=== PATIENT | male | born 1970 | race Caucasian/White ===

== ENCOUNTER 2022-05-27 07:50 | Outpatient (REF) | payer BC, SELFPAY | END 2022-05-27 07:51 | disposition home or self-care (01) | LOC: LBN 07:50 | PROVIDERS: Visit Provider Surgery | DX: L72.3 Sebaceous cyst (principal) | CPT/HCPCS: 87070; 87205 ==

== ENCOUNTER 2022-06-14 10:15 | Day surgery (SDC) | payer BC, SELFPAY ==
--- NOTE | 2022-06-14 08:41 | PDOC.DSDIS_ITS ---
Discharge Plan Disposition Patient Disposition: HOME Condition: Good Discharge Details Reason For Visit: Excision and linear closure of sebaceous cyst Attending Provider: Blaine Wisdom Primary Care Provider: Unknown,Unknown Home Meds and New Rx's Prescriptions: No Action No Known Home Meds Discharge Instructions Additional Instructions: 1. Use tylenol and ibuprofen over the counter as needed. 2. Leave bandage in place for 24 hours, then remove. 3. Shower with warm soapy water. Pat dry. Use a bandaid if needed to protect your clothing. 4. No soaking or tub baths until I see you in the office. 5. No heavy lifting until I see you in the office. 6. Call the office (or go directly to the emergency room after hours) if you notice any of the following: Develop chills (warm to touch), or if you have a thermometer and your temperature is above 101 Difficulty breathing or difficultly swallowing Persistent vomiting Any bleeding ? exceeding one tablespoon 7. Call your physician if the site where your intravenous was started becomes red, swollen, painful, and warm to touch. Referrals: Blaine Wisdom MD [ [facility]FF [facility]YSICIAN] - Activity:: Activity as Tolerated Remove Dressings/Wound Care:: 24 hours Shower/Bathe:: 24 hours Diet:: As Tolerated Discharge Orders Discharge Orders: Discharge Order (Routine); Ordered 06/14/22 Ordered By: Blaine Wisdom DS: Diagnosis Discharge Diagnosis (1) Sebaceous cyst: Status: Acute Asessment and Plan: Follow-up in my office 7 to 10 days for suture removal
--- NOTE | 2022-06-14 08:43 | W.PM.OP ---
Date of service: 06/14/22 Time of Service: 13:47 Operative Note Operative Note DATE OF PROCEDURE: 06/14/22 PRE-OP DIAGNOSIS: Sebaceous cyst POST-OP DIAGNOSIS: same PROCEDURE: Excision and linear closure of right scalp sebaceous cyst SURGEON: Blaine Wisdom Refer to Anesthesia Record ESTIMATED BLOOD LOSS: 15 COMPLICATIONS: None Patient was transported to: same day Patient's condition: stable Indications: Christiano is a 51-year-old male who developed an infected sebaceous cyst on the right side of the scalp immediately above his right ear. He was drained as an outpatient, and treated with a short course of antibiotic. Although he has still had some ongoing drainage. The erythema is resolved and is not tender. We discussed risks and benefits of definitive surgical excision and closure, with a slight increased risk of surgical site infection given the active drainage. He understood the risks and wished to proceed today. Procedure Description: I began by prepping and draping the right scalp above the ear. Next, using sterile technique, I administered local anesthesia with to establish a generous field block. Next, I used a 15 blade scalpel to establish a football shaped incision with adequate margins around the central portion of the lesion. I extended the incision posteriorly to include the previous drainage site to ensure complete excision of the lesion. I dissected down through all layers of the skin using sharp technique. Gentle pressure was used to assist with hemostasis. When I reached the level of the superficial fascia, I dissected underneath the deep layer of the central portion of the lesion taking great care to encompass the hypodermis to optimize chances of clean margins. Next, I held some gentle pressure to assist with hemostasis. I then carefully examined the wound. It was clean, and there was no signs of bleeding. I gently irrigated the surgical site and approximated the deep layers of the skin with interrupted Vicryl stitches. Finally, I approximated the skin edges with interrupted Prolene. I applied bandages, and we reviewed basic wound care instructions.
[2022-06-14 10:35] VITALS: BP 131/76; PULSE 65; RESP 18; TEMP 36.5; O2SAT 100
[2022-06-14] MEDS: Acetaminophen 500 MG TAB 1000 MG PO (10:50)
[2022-06-14] MEDS: Gabapentin 300 MG CAP 600 MG PO (10:51)
[2022-06-14] MEDS: Celecoxib 200 MG CAP PO (10:51)
[2022-06-14] MEDS: Lactated Ringers 1,000 ML 80 ML IV (11:00)
--- NOTE | 2022-06-14 12:34 | W.ANESPRE ---
General Info Date of Service Date Performed: 06/14/22 Height: 5 ft 10 in Weight: 73.7 kg Body Mass Index (BMI): 23.3 Surgical Procedure: Operation Date: 06/14/22 11:40 Proposed Procedure Side Surgeon p Excision and Closure Sebacous Above Ear Cyst Right Blaine Wisdom MD Meds Allergies and Home Medications Allergies Allergy/AdvReac Type Severity Reaction Status Date / Time No Known Allergies Allergy Unverified 06/14/22 10:31 Home Medication Medication Instructions Recorded Unknown [No Known Home Meds] 06/10/22 Current Visit Medications: Current Medications Generic Name Dose Route Start Last Admin Trade Name Freq PRN Reason Stop Dose Admin Acetaminophen 1,000 mg 06/14/22 06:00 06/14/22 10:50 Acetaminophen 500 Mg Tab PO 06/14/22 16:00 1,000 mg PREOP REJI Administration Acetaminophen 650 mg 06/14/22 08:43 Acetaminophen 325 Mg Tab PO Q4H PRN PRN Celecoxib 200 mg 06/14/22 06:00 06/14/22 10:51 Celecoxib 200 Mg Cap PO 06/14/22 16:00 200 mg PREOP REJI Administration Gabapentin 600 mg 06/14/22 06:00 06/14/22 10:51 Gabapentin 300 Mg Cap PO 06/14/22 16:00 600 mg PREOP REJI Administration Ringer's Solution 1,000 mls @ 80 mls/hr 06/14/22 06:00 06/14/22 11:00 IV 07/13/22 23:59 80 mls/hr INFUSION REJI Administration Cefazolin Sodium/Dextrose 2 gm in 50 mls @ 100 mls/hr 06/14/22 06:00 Ancef Duplex IVPB 06/14/22 16:00 PREOP REJI Ondansetron HCl 8 mg/ Sodium 54 mls @ 200 mls/hr 06/14/22 08:43 Chloride IVPB Q6H PRN PRN IV Miscellaneous Supplies 1 each 06/14/22 06:00 Iv Access IV 07/13/22 23:59 DIRECTED REJI Oxycodone HCl 5 mg 06/14/22 08:43 Oxycodone 5 Mg Tab PO Q3H PRN PRN Pain Sodium Chloride 0 ml 06/14/22 06:00 Normal Saline Flush 10 Ml Syr IV 07/13/22 23:59 PRN PRN Sodium Chloride 0 ml 06/14/22 06:00 Normal Saline 10 Ml Vial IJ 07/13/22 23:59 DIRECTED PRN Sterile Water 0 ml 06/14/22 06:00 Water,Injection,Sterile 10 Ml Vial IJ 07/13/22 23:59 DIRECTED PRN PFSH Active Problems Active Problems: Problem Status Onset Code Sebaceous cyst L72.3 Surgical History Surgical History Hx of repair of right rotator cuff Tobacco Smoking/Tobacco Use Status: Current every day Tobacco Type: cigarettes Smoking cigarettes per day: 20 Alcohol Alcohol Intake: current Alcohol intake frequency: 0-2 drinks per day Alcohol type: beer Substance Use Substance use: Never Substance use type: does not use Details: alcohol: t-1, couple beers Vital Signs and Lab Results Vital Signs Most Recent Vital Signs in EMR: Most Recent Vital Signs Temp Pulse Resp BP Pulse Ox 36.5 C 65 18 131/76 100 06/14/22 10:35 06/14/22 10:35 06/14/22 10:35 06/14/22 10:35 06/14/22 10:35 Lab Results Blood Type / Crossmatch: No Data to Display Complete Blood Count: No Data to Display Complete Metabolic Panel: No Data to Display Liver Function Panel: No Data to Display Coagulation Panel: No Data to Display Cardiac Panel: No Data to Display Arterial Blood Gas: No Data to Display Venous Blood Gas: No Data to Display Pancreas Panel: No Data to Display Thyroid Panel: No Data to Display Infectious Disease: No Data to Display Blood Cultures: No Data to Display Toxicology Panel: No Data to Display Anesthesia Assessment and Plan Anesthesia History Personal History: No History of Anesthesia Complications Family History: No Family History of Anesthesia Complications Exercise Tolerance Exercise Tolerance: Metabolic Equivalents>4 Pertinent Negatives Pertinent Negatives: No Symptoms of GERD, No Major Cardiovascular Symptoms or Complaints, No Major Pulmonary Symptoms or Complaints and No History of CVA/TIA Cardiac & Pulmonary Exam Cardiac Exam: Normal S1/S2 Heart Sounds Pulmonary Exam: Clear Bilateral Breath Sounds Implantable Cardiac Device Does patient have a Pacemaker or an ICD?: No Airway Exam Known Difficult Airway: No Mallampati Class: 2 Mouth Opening: Normal (> 3cm) Thyromental Distance: Greater than 3 cm Neck Range of Motion: Full ROM Neck Circumference: Normal Teeth Condition: Removable Dentures/Plates Upper, Removable Dentures/Plates Lower and Edentulous ASA Classification ASA Score: ASA 3 Emergency Case?: No NPO Status NPO Status: NPO Clears >2 hours, Solids >8 hours Anesthesia Plan Resuscitation Status: Full Code Anesthesia Technique: General Anesthesia Airway Planned: Natural Airway Monitors Used: Standard Monitors
[2022-06-14 12:36] VITALS: BMI 23.3
[2022-06-14] MEDS: ceFAZolin 2 GM/50 ML BAG IVPB (13:08)
[2022-06-14] MEDS: Lidocaine 1.5 % Pres-Free W/EPI 1/200,000 30 ML VIAL (13:14)
[2022-06-14 13:39] VITALS: BP 109/71; PULSE 67; RESP 18; TEMP 36.3; O2SAT 98
--- NOTE | 2022-06-14 13:57 | W.ANESPOSTOP ---
Postoperative Evaluation Date, Time and Location Date Performed: 06/14/22 Time Performed: 13:58 Patient Location: Day Surgery Unit Vital Signs Most Recent Imported Vital Signs: Most Recent Vital Signs Temp Pulse Resp BP Pulse Ox 36.5 C 65 18 131/76 100 06/14/22 10:35 06/14/22 10:35 06/14/22 10:35 06/14/22 10:35 06/14/22 10:35 Pain Score Most Recent Pain Score: Most Recent Pain Score Pain Level 0 06/14/22 10:35 Assessment Mental Status: Awake (Alert & Oriented to Patient Baseline) Airway and Respiratory Function: Patent airway with normal (patient baseline) respiratory exam Cardiovascular Function: Hemodynamically Stable Hydration Status: Adequately Hydrated Nausea & Vomiting: No Nausea or Vomiting Pain: Pt. Denies Any Pain Peripheral Nerve Block: Patient did not receive a nerve block
[2022-06-14 14:07] VITALS: BP 107/67; PULSE 60; RESP 18; TEMP 36.6; O2SAT 96
== END 2022-06-14 14:29 | disposition home or self-care (01) ==
PROVIDERS: Visit Provider Surgery
PROC: (CPT 11421; principal; 2022-06-14 11:30)
DX: L72.3 Sebaceous cyst (principal); F17.210 Nicotine dependence, cigarettes, uncomplicated
CPT/HCPCS: 11421; J0690

== ENCOUNTER 2022-11-13 14:15 | Emergency (ER) | payer OTHER, SELFPAY ==
--- NOTE | 2022-11-13 14:30 | DI.RAD_ITS ---
Exam(s) XR HAND RT COMPLETE EXAM: XR HAND RT COMPLETE CLINICAL HISTORY: hand injury. TECHNIQUE: 2D digital imaging was performed. Three views. COMPARISON: No exams were available for comparison FINDINGS: BONES: Fracture at the distal shaft of the middle phalanx of the middle finger. There is severe disp lacement of the distal fracture fragment approximately 1 cm ventrally. No additional fractures.. No bony destructive lesion is seen. JOINTS: No dislocation present. SOFT TISSUE: Normal. IMPRESSION: Markedly displaced fracture of the middle phalanx of the 3rd finger. DATA REPOSITORY: RADIATION DOSE DELIVERED:
[2022-11-13 14:39] VITALS: BP 150/97; PULSE 93; RESP 18; TEMP 36.6; O2SAT 98
--- NOTE | 2022-11-13 16:04 | ED.GENADUL_ITS ---
Discharge Plan Disposition Patient Disposition: Transfer-Acute Inpatient Care Specific Acute Inpt Facility: [facility] Discharge Details Clinical Impression: Open fracture of middle phalanx of finger of right hand Primary Care Provider: Unknown,Unknown ED Provider: Nereida Ribeiro Home Meds and New Rx's Prescriptions: No Action No Known Home Meds Discharge Instructions Instructions: Finger Fracture (ED) Medical Decision Making 51-year-old male presents to the ER with a chief complaint of right hand deformity after his hand was crushed in a roller while at work approximately an hour prior to arrival. He does have an open fracture to his middle digit and a partial soft tissue avulsion type injury to his index finger on his right hand. There is bone exposed. Patient has no known drug allergies. Past medical history includes repair of right rotator cuff. Digital block performed. Orthopedic surgeon on-call Dr. Barrera hairston. Spoke with Dr. Rust who recommends hand surgery, and transfer, he recommends sterile dressing, antibiotics for open fracture. 1615: Images pushed to [facility] and [facility], will consult with hand surgery. Will call [facility] transfer center. 1617: Spoke with [facility] Transfer center they will call back. 1633: Patient given sterile NS and Chlorahexadine and is soaking his hand at this time. 1715: Spoke with [facility] Ortho, Dr. Rust and Dr. Briceno they do accept him for transfer for further eval and treatment, [facility] ED, MD, Dr. Townsend will be accepting. 1745: Assisted Dr. Rust orthopedic doc with realignment of the digits and splinting. A volar splint was placed. Middle digit distally is dusky, cap refill greater than 5 seconds. Patient's is on her way to transport him directly to [facility] by POV. Patient is medically stable at this time. Bleeding is controlled. Patient has received 2 g cefazolin and a Tdap booster. He has received a total of 1.5 mg of hydromorphone. This text was generated using [employer]Saint[employer] system, please disregard any oddities of phrase or misspellings. Imaging Data Radiologic Study: Imaging: X-Ray Radiologist's impression: EXAM: XR HAND RT COMPLETE CLINICAL HISTORY: hand injury. TECHNIQUE: 2D digital imaging was performed. Three views. COMPARISON: No exams were available for comparison FINDINGS: BONES: Fracture at the distal shaft of the middle phalanx of the middle finger. There is severe displacement of the distal fracture fragment approximately 1 cm ventrally. No additional fractures.. No bony destructive lesion is seen. JOINTS: No dislocation present. SOFT TISSUE: Normal. IMPRESSION: Markedly displaced fracture of the middle phalanx of the 3rd finger. Lab Data Lab results reviewed: Yes I reviewed the patient's lab results. Labs: Laboratory Tests Range/Units 11/13/22 11/13/22 16:40 16:40 WBC (4.4-10.8) 10^3/uL 9.45 RBC (4.36-5.78) 10^6/uL 4.18 L Hgb (13.5-17.5) g/dL 13.8 Hct (40.0-50.0) % 39.1 L MCV (80-95) fL 94 MCH (27.0-33.0) pg 33.0 MCHC (32.0-36.0) % 35.3 RDW (11.8-14.1) % 12.2 Plt Count (130-400) 10^3/uL 252 MPV (8.0-11.0) fL 8.8 Immature Gran % 0.2 Neutrophils % 75.0 Lymphocytes % 17.4 Monocytes % 6.8 Eosinophils % 0.4 Basophils % 0.2 Nucleated RBC % (0.0-0.3) % 0.0 Absolute Neutrophils (1.2-6.7) 10^3/uL 7.09 H Absolute Lymphocytes (1.2-3.4) 10^3/uL 1.64 Absolute Monocytes (0.1-0.8) 10^3/uL 0.64 Absolute Eosinophils (0.0-0.7) 10^3/uL 0.04 Absolute Basophils (0.0-0.2) 10^3/uL 0.02 Sodium (136-145) mmol/L 139 Potassium (3.5-5.1) mmol/L 3.8 Chloride (98-107) mmol/L 101 Carbon Dioxide (21.0-32.0) mmol/L 27.3 Anion Gap (3-11) mmol/L 10.7 BUN (7-18) mg/dL 17 Creatinine (0.70-1.30) mg/dL 1.1 Est GFR (CKD-EPI 2020) (mL/min/1.73m2) 80.77 Glucose (74-106) mg/dL 124 H Calcium (8.5-10.1) mg/dL 9.4 Total Bilirubin (0.2-1.0) mg/dL 0.2 AST (15-37) U/L 33 ALT (16-63) U/L 40 Alkaline Phosphatase (46-116) U/L 101 Total Protein (6.4-8.2) g/dL 7.7 Albumin (3.4-5.0) g/dL 4.1 HPI General Mode of arrival: ambulatory . Date/Time Provider Initiated Documentation: 11/13/22 14:41 . Limitations to Documentation: no limitations . Information obtained by: patient, RN notes reviewed and old records reviewed . HPI Narrative: 51-year-old male presents to the ER with a chief complaint of right hand deformity after his hand was crushed in a roller while at work approximately an hour prior to arrival. He does have an open fracture to his middle digit and a partial soft tissue avulsion type injury to his index finger on his right hand. There is bone exposed. Patient has no known drug allergies. Past medical history includes repair of right rotator cuff. 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 (Acute) Open fracture of middle phalanx of finger of right hand (Acute) Sebaceous cyst (Acute) Surgical History Hx of repair of right rotator cuff Social History Smoking/Tobacco Use Status: Current every day Tobacco Type: cigarettes Smoking risk assessment performed?: Yes Alcohol Intake: current Alcohol Intake frequency: 0-2 drinks per day Alcohol type: beer Drug use: Never Substance use type: does not use Details: alcohol: t-1, couple beers Do you feel safe at home: Yes Do you feel safe in your relationship?: Yes Additional Social history: [facility] Extrem Right upper extremity: hand Details: abnormal to inspection Details: a deformity Location: of the 2nd digit and of the 3rd digit, neuromotor exam abnormal Details: unable to assess, neurosensory exam abnormal and other (Degloving deformity type injury nail is facing ventrally cap refill greater than 5) Hand/finger images: 1. Partial amputation, Distal digit twisted ventrally, open fracture. 2. Soft tissue avulsion type injury. Course Vital Signs Vital signs: Vital Signs Temperature 36.6 C 11/13/22 14:39 Pulse 93 H 11/13/22 14:39 Respiratory Rate 18 11/13/22 14:39 Blood Pressure 150/97 H 11/13/22 14:39 Pulse Oximetry 98 11/13/22 14:39 Temperature 36.6 C 11/13/22 14:39 Temperature Source Tympanic 11/13/22 14:39 Pulse 93 H 11/13/22 14:39 Respiratory Rate 18 11/13/22 14:39 Respiratory Effort Normal 11/13/22 14:45 Blood Pressure 150/97 H 11/13/22 14:39 Blood Pressure Position Supine 11/13/22 14:39 Pulse Oximetry 98 11/13/22 14:39 Oxygen Delivery Method Room Air 11/13/22 14:39 Oxygen Flow Rate 0 11/13/22 14:39 Pain Level 8 11/13/22 14:39 Procedures Nerve Block Nerve Block 1: Time out performed: Yes Local Anesthetic: Lidocaine 1% and Bupivicaine 0.5% Amount of anesthesia used (mL): 5 Side: right Nerve Blocks: digital (4 sided ring block middle digit, 2 sided ring block index finger) Procedure Successful: Yes Patient Tolerated Procedure: well and no complications Complications: none PAWSS Have you Been Recently Intoxicated or Drunk Within the Last 30 days?: Yes Have you Ever Experienced Previous Episodes of Alcohol Withdrawal?: No Have you ever Experienced Withdrawal Seizures?: No Have you ever Experienced Delirium Tremens(DT)s?: No Have you ever undergone Alcohol Rehabilitation Treatment (i.e, inpt ot outpatient treatment programs)?: No Have you ever Experienced Blackouts?: No Have you ever Combined Alcohol with other Downers within the last 90 days?: No Have you ever Combined Alcohol with any other Substance of Abuse during the last 90 days?: No Positive Blood Alcohol level on Presentation? [PCS.BAL]: No Evidence of Increased Autonomic Activity (i.e. HR>120, tremor, sweating, agitati on, nausea)?: No Result: 1
[2022-11-13 16:44] LABS: Abs Immature Grans 0.02 10^3/uL (0.0-0.06); Absolute Basophil Count 0.02 10^3/uL (0.0-0.2); Absolute Eosinophil Count 0.04 10^3/uL (0.0-0.7); Absolute Lymphocyte Count 1.64 10^3/uL (1.2-3.4); Absolute Monocyte Count 0.64 10^3/uL (0.1-0.8); Absolute Neutrophil Count 7.09 10^3/uL (1.2-6.7); Basophils % 0.2; Eosinophils % 0.4; HCT 39.1 % (40.0-50.0); HGB 13.8 g/dL (13.5-17.5); Immature Grans % 0.2; Lymphocytes % 17.4; MCHC 35.3 % (32.0-36.0); MCV 94 fL (80-95); MPV 8.8 fL (8.0-11.0); Monocytes % 6.8; Platelet Count 252 10^3/uL (130-400); RBC 4.18 10^6/uL (4.36-5.78); RDW 12.2 % (11.8-14.1); RDW-SD 42.3 fL; WBC 9.45 10^3/uL (4.4-10.8)
[2022-11-13] MEDS: HYDROmorphone 2 MG/ML SYR 0.5 MG IVP ×3 (16:58→18:07)
[2022-11-13 16:59] LABS: ALT 40 U/L (16-63); AST 33 U/L (15-37); Albumin 4.1 g/dL (3.4-5.0); Alkaline Phosphatase 101 U/L (46-116); Anion Gap 10.7 mmol/L (3-11); BUN 17 mg/dL (7-18); Bilirubin, Total 0.2 mg/dL (0.2-1.0); CO2 27.3 mmol/L (21.0-32.0); CREATININE 1.1 mg/dL (0.70-1.30); Calcium 9.4 mg/dL (8.5-10.1); Chloride 101 mmol/L (98-107); Estimated GFR 80.77 (mL/min/1.73m2); Glucose 124 mg/dL (74-106); Potassium 3.8 mmol/L (3.5-5.1); Sodium 139 mmol/L (136-145); Total Protein 7.7 g/dL (6.4-8.2)
[2022-11-13] MEDS: Ondansetron 4 MG/2 ML VIAL IVP (17:02)
[2022-11-13] MEDS: ceFAZolin 2 GM/50 ML BAG IVPB (17:03)
--- NOTE | 2022-11-13 17:54 | OCONE_ITS ---
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 Quit smoking in September. Not currently smoking. Right hand versus industrial roller around 3 PM today. Index finger has volar soft tissue loss moderate thickness about the distal phalanx and only superficially below the middle phalanx. Index finger has brisk cap refill and intact flexion extension. Long finger has circumferential complex skin laceration and probable extensor tendon rupture although deeper structures are very difficult to discern given abnormality and significant rotation about 180 degrees deformity. The di stal aspect is white without cap refill. Unable to demonstrate any flexion extension. Digital nerve exam limited by emergency room provider digital block so both index and long fingers are numb. The long finger was derotated as best possible positioned in relative anatomic alignment, highly unstable with shortening and trying to rotate. The wound was cleansed, sterile nonstick dressing applied, tetanus and antibiotics had been done, gauze applied with long finger somewhat maintained and relatively reasonable orientation between the index and ring fingers, all wrapped with Kerlix, and volar fiberglass resting splint applied. The long finger was reevaluated following this reduction and s till maintain largely white appearance without any appreciable cap refill. Reviewed the complexity of the middle finger injury with the patient. Challenging save the distal aspect. Likely to quire shortening. Discussed with [facility] for hand specialist evaluation emergently, who accept transfer to their ER, and consideration for repair/revascularization if reasonable. 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 (Acute) Open fracture of middle phalanx of finger of right hand (Acute) Sebaceous cyst (Acute) Surgical History Hx of repair of right rotator cuff Social History Smoking/Tobacco Use Status: Current every day Tobacco Type: cigarettes Smoking risk assessment performed?: Yes Alcohol Intake: current Alcohol Intake frequency: 0-2 drinks per day Alcohol type: beer Drug use: Never Substance use type: does not use Details: alcohol: t-1, couple beers Do you feel safe at home: Yes Do you feel safe in your relationship?: Yes Additional Social history: unable to assess [facility] Results Last Vital Signs Temp 97.8 F 11/13/22 14:39 Pulse 93 H 11/13/22 14:39 Resp 18 11/13/22 14:39 BP 150/97 H 11/13/22 14:39 Pulse Ox 98 11/13/22 14:39 Labs 11/13/22 16:40 11/13/22 16:40 Labs: Laboratory Results - last 24 hr 11/13/22 11/13/22 16:40 16:40 WBC 9.45 RBC 4.18 L Hgb 13.8 Hct 39.1 L MCV 94 MCH 33.0 MCHC 35.3 RDW 12.2 Plt Count 252 MPV 8.8 Immature Gran % 0.2 Neutrophils % 75.0 Lymphocytes % 17.4 Monocytes % 6.8 Eosinophils % 0.4 Basophils % 0.2 Nucleated RBC % 0.0 Absolute Neutrophils 7.09 H Absolute Lymphocytes 1.64 Absolute Monocytes 0.64 Absolute Eosinophils 0.04 Absolute Basophils 0.02 Sodium 139 Potassium 3.8 Chloride 101 Carbon Dioxide 27.3 Anion Gap 10.7 BUN 17 Creatinine 1.1 Est GFR (CKD-EPI 2020) 80.77 Glucose 124 H Calcium 9.4 Total Bilirubin 0.2 AST 33 ALT 40 Alkaline Phosphatase 101 Total Protein 7.7 Albumin 4.1
[2022-11-13 18:13] VITALS: BP 138/68; PULSE 68; RESP 16; O2SAT 97
== END 2022-11-13 18:08 | disposition short-term general hospital (02) ==
PROVIDERS: Emergency Provider Registered Nurse Emergency
DX: S62.620B Displaced fracture of middle phalanx of right index finger, initial encounter for open fracture; S68.120A Partial traumatic metacarpophalangeal amputation of right index finger, initial encounter; Z23 Encounter for immunization; Y99.0 Civilian activity done for income or pay; W23.0XXA Caught, crushed, jammed, or pinched between moving objects, initial encounter; S67.21XA Crushing injury of right hand, initial encounter
CPT/HCPCS: 64450; 80053; 90471; 96365; 96375; 96376; 99285; 73130; 85025; 99283; J0690; J1170; J2405